=== PATIENT | male | born 1970 | race Two or more races ===

== ENCOUNTER → 2020-03-14 | Outpatient (CLI) | payer OTHER ==
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
== END ==
LOC: RAD 11:19
PROVIDERS: ATTEND Internal Medicine
DX: S22.41XA Multiple fractures of ribs, right side, initial encounter for closed fracture (principal)
CPT/HCPCS: 71101